=== PATIENT | male | born 1985 | race Caucasian/White ===

== ENCOUNTER 2020-11-30 06:29 | Emergency (ER) | payer OTHER ==
[~2020-11-30] VITALS: Ht 177.8 cm; Wt 108.9 kg
--- NOTE | 2020-11-30 06:38 | NUR ---
PT BIB [facility] FOR AMS, FOUND LYING DOWN ON SIDE WALK. UNABLE TO OBTAIN PROPER HX, PT REFUSING TO ANSWER QUESTIONS. NO SOB OR LABORED BREATHING, AFEBRILE. NOTED TO BE SELECTIVELY SPEAKING, CLEAR SPEECH, COMPLETE SENTENCES.
--- NOTE | 2020-11-30 06:40 | NUR ---
DR. GUZMÁN AT BEDSIDE MSE IN PROGRESS.
[2020-11-30] MEDS ORDERED: IV NORMAL SALINE 1000 ML BAG IV ONE (06:45)
[2020-11-30 06:51] LABS: HEMATOCRIT 43.3 % (36.7-47.1); MEAN CORPUSCULAR VOLUME 87.2 fL (73.0-96.2); PLATELET COUNT (AUTO) 214 K/uL (152-348)
--- NOTE | 2020-11-30 06:53 | NUR ---
PT TAKEN DOWN FOR CT.
[2020-11-30 07:04] LABS: ETHANOL < 3 MG/DL (0-0)
[2020-11-30 07:06] LABS: CARBON DIOXIDE 27 mmol/L (21-32); CHLORIDE 104 mmol/L (98-107); CREATININE 1.4 mg/dL (0.6-1.3); GLUCOSE 111 mg/dL (74-106); POTASSIUM 3.7 mmol/L (3.5-5.1); UREA NITROGEN, BLOOD 18 mg/dL (7-18)
--- NOTE | 2020-11-30 07:12 | NUR ---
PT RETURNED FROM CT.
[2020-11-30 07:17] LABS: ACETAMINOPHEN < 2.0 ug/mL (10-30); ALANINE AMINOTRANSFERASE 83 U/L (16-63); ALKALINE PHOSPHATASE 90 U/L (50-136); ASPARTATE AMINOTRANSFERASE 53 U/L (15-37); BILIRUBIN,DIRECT 0.4 mg/dL (0.0-0.2); BILIRUBIN,TOTAL 2.1 mg/dL (0.2-1.0); TOTAL PROTEIN, SERUM 8.4 g/dL (6.4-8.2)
[2020-11-30] MEDS ORDERED: IBUPROFEN 600 MG TABLET PO ONE (08:45)
--- NOTE | 2020-11-30 08:45 | NUR ---
Pt stated his feet hurt and he didn't want to walk to the bathroom. Gave pt urinal, obtained urine sample, sent sample to lab. provided bin for pt to wash feet, and socks.
[2020-11-30 09:02] LABS: *BILIRUBIN,URIN NEGATIVE (NEGATIVE); *CLARITY,URINE CLEAR (CLEAR); *COLOR,URINE YELLOW (YELLOW); *KETONES,URINE 1+ (NEGATIVE); *UROBILINOGEN,URINE 0.2 E.U./dl (NORMAL); LEUKOCYTE ESTERASE ,URINE NEGATIVE (NEGATIVE); NITRITE, URINE NEGATIVE (NEGATIVE); PH,URINE 5.5 (5.0-8.0); UGLUCOSE NEGATIVE (NEGATIVE)
[2020-11-30 09:12] LABS: *BLOOD, URINE TRACE (NEGATIVE)
[2020-11-30] MEDS ORDERED: IBUPROFEN 600 MG TABLET ONE (09:14)
[2020-11-30 09:20] LABS: *AMPHETAMINE, URINE NEGATIVE (NEGATIVE); *CANNABINOID, URINE NEGATIVE (NEGATIVE); *COCCAINE, URINE NEGATIVE (NEGATIVE); *OPIATE, URINE NEGATIVE (NEGATIVE); *PHENCYCLIDINE SCREEN,URINE NEGATIVE (NEGATIVE)
[2020-11-30] MEDS ORDERED: IBUP-1955 PO (10:09)
[2020-11-30] MEDS ORDERED: TDAP DIPH,PERTUSS,TET VAC/PF 0.5 ML DISP.SYRIN IM ONE ×2 (10:15)
[2020-11-30 10:24] LABS: RBC,URINE 0-3 /HPF (0-3); WBC,URINE 0-3 /HPF (0-3)
[2020-11-30 10:25] LABS: BACTERIA,URINE NONE SEEN /HPF (NONE SEEN); SQUAMOUS EPITHELIAL CELL,UR FEW /HPF (NONE SEEN)
== END 2020-11-30 10:43 | disposition home or self-care (01) ==
LOC: EDBD 06:34 → ER 06:34
DX: F41.0 Panic disorder [episodic paroxysmal anxiety] (principal); K76.0 Fatty (change of) liver, not elsewhere classified; S90.812A Abrasion, left foot, initial encounter; S90.811A Abrasion, right foot, initial encounter; X58.XXXA Exposure to other specified factors, initial encounter; Y93.01 Activity, walking, marching and hiking; Y92.89 Other specified places as the place of occurrence of the external cause; R74.01 Elevation of levels of liver transaminase levels; D72.829 Elevated white blood cell count, unspecified; Z91.19 Patient's noncompliance with other medical treatment and regimen
CPT/HCPCS: 36415; 70450; 76705; 85025; 90715; A4663; G0480; J7030